=== PATIENT | male | born 1990 | race Caucasian/White ===

== ENCOUNTER 2021-11-26 17:46 | Emergency (ER) | payer OTHER, SELFPAY ==
--- NOTE | 2021-11-26 17:50 | ED.SKABFB ---
HPI - Skin/Abscess/Foreign Bdy General Chief complaint: Skin/Abscess/Foreign Body Stated complaint: possible spider bite Time Seen by Provider: 11/26/21 17:50 Source: patient and RN notes reviewed Mode of arrival: ambulatory Limitations: no limitations History of Present Illness HPI narrative: 31-year-old male presents to the [facility] with an insect bite to the left inner upper thigh that he noticed on Tuesday. Started becoming painful today. Came in for evaluation due to concern of a brown recluse bite. Onset (ago): day(s) (3) Related Data Home Medications Medication Instructions Recorded Confirmed gabapentin 300 mg capsule 300 mg PO DAILY 11/26/21 11/26/21 Allergies Allergy/AdvReac Type Severity Reaction Status Date / Time No Known Allergies Allergy Verified 11/26/21 17:59 Review of Systems Review of Systems: All systems reviewed & are unremarkable except as noted in HPI and below Constitutional: Constitutional: Reports no additional constitutional complaints, Denies chills and Denies fever(s) Eyes: Eyes: Reports no additional eye complaints ENT: Reports system reviewed and no additional complaints, except as documented Cardiovascular: Cardiovascular: Reports no additional cardiovascular complaints Respiratory: Respiratory: Reports no additional respiratory complaints Gastrointestinal: Gastrointestinal: Reports no additional gastrointestinal complaints Musculoskeletal: Musculoskeletal: Reports no additional musculoskeletal complaints Integumentary/Breasts: Skin/Breast: Reports as per HPI and Reports erythema (Right upper inner thigh) Neurologic: Reports system reviewed and no additional complaints, except as documented Psychiatric: Psychiatric: Reports no additional psychiatric complaints Allergic/Immunologic: Allergic/Immunologic: Reports no additional allergic/immunologic complaints PMFSH Past Medical History Medical History Patient denies medical problems Surgical History Surgical History (Updated 11/26/21 @ 19:15 by Cintia Deshpande APRN) No history of previous surgery Social History Social History (Updated 11/26/21 @ 19:16 by Cintia Deshpande APRN) Smoking status: Current every day smoker Tobacco type: cigarettes Gender identity (if verbalized by the patient): Male Comments At the time of my signature, I reviewed and agree with the nursing past medical, surgical, social, and family history. There is no relevant family history pertinent to the patient complaint. Exam Const: General: healthy appearing, no acute distress and alert Nutritional Appearance: well nourished Orientation/consciousness: patient oriented x3 Limitations: no limitations HENMT: Head: normal to inspection Ears: external ears normal General nose exam: Normal external nose present Eyes: General: appearance normal, both eyes and all related structures Pupils: Equal, round and reactive pupils present Neck: Neck: normal visual inspection, no lymphadenopathy and no meningeal signs Chest: Chest palpation & inspection: normal inspection of the chest Resp: Effort & Inspection: normal respiratory effort and no use of accessory muscles Auscultation: clear to auscultation bilaterally, no crackles, no rales, no rhonchi and no wheezes Cardio: Rate: regular rate Rhythm: regular rhythm Back/Spine/Pelvis: Cervical Spine: normal cervical lordosis Thoracic/Lumbar Spine: thoracic and lumbar spine normal to inspection Skin: General skin exam: normal color, turgor normal, skin not dry, erythema (7x5.5 cm with 1cm raised center), excoriation, no fluctuance and induration Rashes: no rashes Wounds: no wounds Full body images: 1. 7 x 5-1/2 cm erythema increased warmth with a raised 1 cm indurated area without fluctuance or drainage. Neuro: General: patient oriented x3, moves all extremities, no meningeal signs and no focal motor deficits Cranial nerves: Yes
[2021-11-26 17:58] VITALS: BP 135/78; PULSE 66; RESP 12; TEMP 36.7; O2SAT 100
== END 2021-11-26 18:30 | disposition home or self-care (01) ==
PROVIDERS: Emergency Provider Nurse Practitioner; PCP Nurse Practitioner Family
DX: S70.362A Insect bite (nonvenomous), left thigh, initial encounter (principal); L03.116 Cellulitis of left lower limb; W57.XXXA Bitten or stung by nonvenomous insect and other nonvenomous arthropods, initial encounter
CPT/HCPCS: 99203; G0463

== ENCOUNTER 2023-08-13 15:30 | Emergency (ER) | payer OTHER, SELFPAY ==
[2023-08-13 15:47] VITALS: BP 124/85; PULSE 69; RESP 16; TEMP 37.2; O2SAT 98
--- NOTE | 2023-08-13 15:50 | ED.GENADULT ---
HPI - General Adult General Chief complaint: Eye Problems Stated complaint: SORE THROAT/EYE REDNESS Source: patient, RN notes reviewed and old records reviewed Mode of arrival: ambulatory Limitations: no limitations History of Present Illness HPI narrative: 32-year-old male patient presents to [facility] with complaints of cough, congestion, sore throat, myalgia, bilateral eye redness /irritation / drainage that started 2-3 days ago. Patient taking [id number] medications with no relief. Patient denies chest pain, shortness of breath, dizziness, weakness Related Data Allergies Allergy/AdvReac Type Severity Reaction Status Date / Time No Known Allergies Allergy Verified 08/13/23 15:40 Review of Systems Constitutional: Constitutional: Reports no additional constitutional complaints, Reports body ache(s), Denies chills, Denies fatigue, Denies fever(s) and Denies headache(s) Eyes: Eyes: Reports no additional eye complaints, Denies blurry vision, Denies exophthalmos, Denies change in vision, Denies decreased night vision, Denies diplopia, Reports eye discharge, Reports irritation, Reports itchy eyes and Denies eye pain ENT: Reports system reviewed and no additional complaints, except as documented, Denies vertigo, Denies dizziness, Denies ear discharge, Denies otalgia, Denies facial pain, Denies headache(s), Reports nasal congestion, Denies nasal discharge, Denies sinus pain, Reports sinus pressure and Reports sore throat Cardiovascular: Cardiovascular: Reports no additional cardiovascular complaints, Denies chest pain, Denies chest pain at rest, Denies rapid heart rate and Denies dyspnea Respiratory: Respiratory: Reports no additional respiratory complaints, Denies chest congestion, Reports cough, Denies pain on inspiration, Denies pain with cough and Denies dyspnea Gastrointestinal: Gastrointestinal: Denies abdominal pain, Denies diarrhea, Denies nausea and Denies vomiting Integumentary/Breasts: Skin/Breast: Denies rash Neurologic: Reports system reviewed and no additional complaints, except as documented, Denies vertigo, Denies dizziness and Denies headache(s) Endocrine: Endocrine: Denies fatigue PMFSH Past Medical History Medical History Patient denies medical problems Surgical History Surgical History (Updated 11/26/21 @ 19:15 by Cintia Deshpande APRN) No history of previous surgery Social History Social History (Updated 11/26/21 @ 19:16 by Cintia Deshpande APRN) Smoking status: Current every day smoker Tobacco type: cigarettes Gender identity (if verbalized by the patient): Male Comments At the time of my signature, I reviewed and agree with the nursing past medical, surgical, social, and family history. There is no relevant family history pertinent to the patient complaint. Exam Const: General: cooperative, healthy appearing, no acute distress and well nourished Nutritional Appearance: well nourished Orientation/consciousness: patient oriented x3 Limitations: no limitations HENMT: Head: normal to inspection and normocephalic Ears: external ears normal, TM's normal bilaterally, EAC's normal and mastoids normal Face/Nose/Sinus: Normal nasal mucous membranes and turbinates present and normal facial exam Face and sinus: normal facial exam and sinuses nontender Mouth: Yes Normal oral and palatal mucosa present, Yes oropharynx normal and Yes moist mucous membranes Throat: tonsils normal, uvula midline, normal tonsils, no peritonsillar masses, posterior oropharynx abnormal erythema, postnasal drainage and no uvular edema Eyes: Alignment and Position: alignment normal Periorbital: periorbital findings normal Eyelids: eyelids normal Conjunctivae: conjunctival abnormality ( erythematous) bilateral discharge Sclera: sclerae normal Pupils: Equal, round and reactive pupils present Resp: Effort & Inspection: normal respiratory effort, able to speak in
== END 2023-08-13 16:08 | disposition home or self-care (01) ==
PROVIDERS: Emergency Provider Registered Nurse; PCP Nurse Practitioner Family
DX: H10.9 Unspecified conjunctivitis (principal); B34.9 Viral infection, unspecified; Z20.822 Contact with and (suspected) exposure to COVID-19; F17.210 Nicotine dependence, cigarettes, uncomplicated
CPT/HCPCS: 87081; 87426; 87804; 87880; 99213; G0463

== ENCOUNTER 2024-04-30 16:36 | Emergency (ER) | payer OTHER, SELFPAY ==
[2024-04-30] VITALS (7 sets, daily range): BP systolic 126–148; BP diastolic 82–93; PULSE 70–96; RESP 14–18; TEMP 36.6; O2SAT 96–99
--- NOTE | ~2024-04-30 | XR_ITS ---
EXAMINATION: XR chest 2V Exam Date/Time: 04/30/2024 18:22 PUBLIC INFORMATION OFFICER HISTORY: dyspnea and chest tightness Comparison: None. RESULT: Lines, tubes, and devices: None. Lungs and pleura: Clear. Cardiomediastinal silhouette: Normal. Other: No acute osseous or upper abdominal finding. IMPRESSION: No acute cardiopulmonary process. Reviewed, dictated and finalized at location K. IC INFORMATION OFFICER
--- NOTE | 2024-04-30 18:08 | ED_ITS ---
HPI - SOB/Dyspnea General Chief Complaint: Shortness of Breath/Dyspnea <Ryan Mora PA-C - Last Filed: 04/30/24 18:14> Stated Complaint: chest tightness, sob <SUSAN Dumont Last Filed: 04/30/24 18:14> Time Seen by Provider: 04/30/24 18:08 <Ryan Mora PA-C - Last Filed: 04/30/24 18:14> Focused HPI: This is a 33-year-old male who presents to the ED for chief complaint of chest tightness and shortness of breath beginning yesterday morning. Reports tightness to the central chest but denies pain. States that it comes and goes in severity and is associated with dyspnea. Reports that he has had panic attacks in the past but they have not quite felt like this. endorses dizziness, nausea, lack of appetite. Denies exertional component to pain, syncope or back pain. GENERAL: Well-appearing, well-nourished, and in no acute distress. HEAD: Normocephalic, atraumatic. CHEST: Clear to auscultation. No respiratory distress. HEART: Regular rate and rhythm. NEURO: Alert and oriented x3. Patient screened in triage and initial orders placed. Additional care and disposition to be based upon diagnostic testing and treatment. <Ryan Mora PA-C - Last Filed: 04/30/24 18:14> Source: patient <SUSAN Dumont Last Filed: 04/30/24 18:14> Mode of arrival: ambulatory <Ryan Mora PA-C - Last Filed: 04/30/24 18:14> Limitations: no limitations <SUSAN Dumont Last Filed: 04/30/24 18:14> History of Present Illness HPI Narrative: Agree with above HPI. States sxs may have began actually 2 nights ago. Sxs have subsided currently. <SUSAN Torre Last Filed: 05/01/24 01:58> Related Data Allergies/Adverse Reactions: Allergies Allergy/AdvReac Type Severity Reaction Status Date / Time No Known Allergies Allergy Verified 04/30/24 18:22 <SUSAN Dumont Last Filed: 04/30/24 18:14> Review of Systems 2 Review of Systems: All systems reviewed & are unremarkable except as noted in HPI. <Kellen Grimm PA-C - Last Filed: 05/01/24 01:58> All systems reviewed & are unremarkable except as noted in HPI and below < Kellen Grimm PA-C - Last Filed: 05/01/24 01:58> PMFSH Past Medical History Medical History: Medical History Patient denies medical problems <Ryan Mora PA-C - Last Filed: 04/30/24 18:14> Surgical History Surgical History: Surgical History No history of previous surgery <Ryan Mora PA-C - Last Filed: 04/30/24 18:14> Social History Social History: Social History Smoking status: Current every day smoker Tobacco type: cigarettes Gender identity (if verbalized by the patient): Male <Ryan Mora PA-C - Last Filed: 04/30/24 18:14> Exam 2 Narrative: GENERAL: Well appearing, well-nourished, non-toxic, in no acute distress. HEAD: Normocephalic, atraumatic. RESPIRATORY: Airway patent, respirations nonlabored. Clear to auscultation bilaterally, no rales, rhonchi, wheezing. No focal lung sounds. CARDIOVASCULAR: Regular rate and rhythm without murmurs, rubs, or gallops. ABDOMINAL: Soft, minimal tenderness in epigastric region, nondistended. Normoactive BS. MUSCULOSKELETAL: Moves all extremities. No gross deformities. SKIN: Warm, dry, normal color. NEURO: A&O X3. Speech clear. Cranial nerves II-XII grossly intact. Steady gait. No ataxic movements. PSYCHIATRIC: Mildly anxious appearing. Normal interaction. <Kellen Grimm PA-C - Last Filed: 05/01/24 01:58> Course Vital Signs Vital signs: Vital Signs Temperature 97.9 F 04/30/24 16:38 Pulse Rate 91 04/30/24 16:38 Respiratory Rate 18 04/30/24 16:38 Blood Pressure 148/85 H 04/30/24 16:38 Pulse Oximetry 99 04/30/24 16:38 Oxygen Delivery Room Air 04/30/24 16:38 Temperature 97.9 F 04/30/24 16:38 Pulse Rate 70 04/30/24 23:46 Respiratory Rate 15 04/30/24 23:46 Blood Pressure 130/82 04/30/24 23:46 Pulse Oximetry 99 04/30/24 23:46 Oxygen Delivery Room Air 04/30/24 22:05 <Ryan Mora PA-C - Last Filed: 04/30/24 18:14> Vital Signs Temperature 97.9 F 04/30/24 16:38 Pulse Rate 91 04/30/24 16:38 Respiratory Rate 18 04/30/24 16:38 Blood Pressure 148/85 H 04/30/24 16:38 Pulse Oximetry 99 04/30/24 16:38 Oxygen Delivery Room Air 04/30/24 16:38 Temperature 97.9 F 04/30/24 16:38 Pulse Rate 70 04/30/24 23:46 Respiratory Rate 15 04/30/24 23:46 Blood Pressure 130/82 04/30/24 23:46 Pulse Oximetry 99 04/30/24 23:46 Oxygen Delivery Room Air 04/30/24 22:05 <Kellen Grimm PA-C - Last Filed: 05/01/24 01:58> MDM - SOB/Dyspnea MDM Narrative Medical decision making narrative: Patient presented to ED with 2 day hx of chest tightness, mild shortness of breath, nausea, decreased appetite, anxiety. Vital signs are stable upon arrival. Patient was seen in triage and given dose of hydroxyzine. Upon my evaluation, he is feeling improved. States symptoms have subsided significantly. Workup is reassuring. EKG is nonischemic. Troponin is undetectable. Chest tightness has been ongoing for the past 2 days. Low suspicion for ACS at this time. No indication for 3 hour troponin. D-dimer was within normal range. Viral swabs were negative. No leukocytosis or anemia. There was a slight anion gap of 14 on CMP. Patient does admit to decreased intake over the last few days. He was given fluids in the ED. Blood sugar is normal. Electrolytes are otherwise within normal range. Chest x-ray is clear. Patient additionally given fluids and Zofran in the ED. He is feeling better upon re-evaluation. Feel he is safe for discharge home at this time with close outpatient follow-up. Recommended follow-up with PCP for further evaluation. Discussed strict return precautions and patient voiced understanding. Discharged in stable condition. <Kellen Grimm PA-C - Last Filed: 05/01/24 01:58> Medical Records Attestation: I reviewed the patient's medical records. <SUSAN Torre Last Filed: 05/01/24 01:58> Lab Data Attestation: I reviewed the patient's lab results. <Kellen Grimm PA-C - Last Filed: 05/01/24 01:58> Result diagrams: 04/30/24 18:17 04/30/24 18:17 <SUSAN Dumont Last Filed: 04/30/24 18:14> Labs: Lab Results 04/30/24 04/30/24 Range/Units 18:17 21:58 WBC 6.5 (4.5-10.0) K/mm3 RBC 5.06 (4.6-6.20) M/mm3 Hgb 15.7 (14.0-18.0) g/dL Hct 45.2 (42.0-52.0) % MCV 89.3 (80-100) fl MCH 31.0 (26-34) pg MCHC 34.7 (32-36) g/dl RDW 12.3 (11.5-14.5) % Plt Count 344 (150-375) k/mm3 MPV 9.8 (7.4-10.4) fl Immature Gran % (Auto) 0.3 (0-0.5) % Neut % (Auto) 67.9 (45.5-73.1) % Lymph % (Auto) 19.5 (18.3-44.2) % Harvey % (Auto) 11.2 H (2.6-8.5) % Eos % (Auto) 0.6 (0-4.4) % Baso % (Auto) 0.5 (0.2-1.2) % Lymph # (Auto) 1.27 (0.9-3.2) K/mm3 Harvey # (Auto) 0.7 H (0.1-0.6) K/mm3 Eos # (Auto) 0.0 (0-0.3) K/mm3 Baso # (Auto) 0.0 (0.0-0.1) K/mm3 Abs Immat Gran (auto) 0.02 (0.00-0.031) K/mm3 Absolute Neuts (auto) 4.4 (1.3-6.7) K/mm3 Absolute Nucleated RBC 0.000 (0.0-0.012) K/mm3 Nucleated RBC % 0.0 (0.0-0.2) % PT 13.1 (11.1-14.7) Seconds INR 1.0 APTT 24.5 (22.3-36.8) Seconds D-Dimer < 0.27 (<0.48) ug/mL Sodium 133 L (137-145) mmol/L Potassium 4.3 (3.4-5.0) mmol/L Chloride 100 (98-107) mmol/L Carbon Dioxide 19 L (22-30) mmol/L Anion Gap 14 H (4-12) mmol/L BUN 15 (9-20) mg/dL Creatinine 0.90 (0.7-1.3) mg/dL Estim Creat Clear Calc 91 ml/min Estimated GFR > 60 (59 - ) Glucose 85 (65-110) mg/dL Calcium 9.7 (8.4-10.2) mg/dL Magnesium 2.1 (1.6-2.3) mg/dL Total Bilirubin 0.8 (0.2-1.3) mg/dL AST 71 H (17-59) U/L ALT 49 (6-50) U/L Alkaline Phosphatase 133 H (38-126) U/L Total Creatine Kinase 56 (55-170) U/L Troponin I < 0.012 (0.000-0.034) ng/mL Total Protein 9.0 H (6.3-8.2) g/dL Albumin 5.0 (3.5-5.1) g/dL Influenza A (RT-PCR) Negative (Negative) Influenza B (RT-PCR) Negative (Negative) RSV (RT-PCR) Negative (Negative) SARS-CoV-2 RNA (RT-PCR) Negative (Negative) <Ryan Mora PA-C - Last Filed: 04/30/24 18:14> Lab Results 04/30/24 04/30/24 Range/Units 18:17 21:58 WBC 6.5 (4.5-10.0) K/mm3 RBC 5.06 (4.6-6.20) M/mm3 Hgb 15.7 (14.0-18.0) g/dL Hct 45.2 (42.0-52.0) % MCV 89.3 (80-100) fl MCH 31.0 (26-34) pg MCHC 34.7 (32-36) g/dl RDW 12.3 (11.5-14.5) % Plt Count 344 (150-375) k/mm3 MPV 9.8 (7.4-10.4) fl Immature Gran % (Auto) 0.3 (0-0.5) % Neut % (Auto) 67.9 (45.5-73.1) % Lymph % (Auto) 19.5 (18.3-44.2) % Harvey % (Auto) 11.2 H (2.6-8.5) % Eos % (Auto) 0.6 (0-4.4) % Baso % (Auto) 0.5 (0.2-1.2) % Lymph # (Auto) 1.27 (0.9-3.2) K/mm3 Harvey # (Auto) 0.7 H (0.1-0.6) K/mm3 Eos # (Auto) 0.0 (0-0.3) K/mm3 Baso # (Auto) 0.0 (0.0-0.1) K/mm3 Abs Immat Gran (auto) 0.02 (0.00-0.031) K/mm3 Absolute Neuts (auto) 4.4 (1.3-6.7) K/mm3 Absolute Nucleated RBC 0.000 (0.0-0.012) K/mm3 Nucleated RBC % 0.0 (0.0-0.2) % PT 13.1 (11.1-14.7) Seconds INR 1.0 APTT 24.5 (22.3-36.8) Seconds D-Dimer < 0.27 (<0.48) ug/mL Sodium 133 L (137-145) mmol/L Potassium 4.3 (3.4-5.0) mmol/L Chloride 100 (98-107) mmol/L Carbon Dioxide 19 L (22-30) mmol/L Anion Gap 14 H (4-12) mmol/L BUN 15 (9-20) mg/dL Creatinine 0.90 (0.7-1.3) mg/dL Estim Creat Clear Calc 91 ml/min Estimated GFR > 60 (59 - ) Glucose 85 (65-110) mg/dL Calcium 9.7 (8.4-10.2) mg/dL Magnesium 2.1 (1.6-2.3) mg/dL Total Bilirubin 0.8 (0.2-1.3) mg/dL AST 71 H (17-59) U/L ALT 49 (6-50) U/L Alkaline Phosphatase 133 H (38-126) U/L Total Creatine Kinase 56 (55-170) U/L Troponin I < 0.012 (0.000-0.034) ng/mL Total Protein 9.0 H (6.3-8.2) g/dL Albumin 5.0 (3.5-5.1) g/dL Influenza A (RT-PCR) Negative (Negative) Influenza B (RT-PCR) Negative (Negative) RSV (RT-PCR) Negative (Negative) SARS-CoV-2 RNA (RT-PCR) Negative (Negative) <Kellen Grimm PA-C - Last Filed: 05/01/24 01:58> Imaging Data Attestation: I personally reviewed and interpreted this imaging study as follows: < SUSAN Torre Last Filed: 05/01/24 01:58> Radiologist's impression: ITS Impressions Chest X-Ray 04/30/24 18:29 IMPRESSION: No acute cardiopulmonary process. <SUSAN Torre Last Filed: 05/01/24 01:58> ECG Data EKG #1: Attestation: I personally reviewed and interpreted this ECG as follows: <SUSAN Torre Last Filed: 05/01/24 01:58> ECG completion date: 04/30/24 <SUSAN Torre Last Filed: 05/01/24 01:58> ECG completion time: 18:15 <SUSAN Torre Last Filed: 05/01/24 01:58> EKG Interpretation: normal rate (74), sinus rhythm, no ST changes and other (artifact and wander in V2) <SUSAN Torre Last Filed: 05/01/24 01:58> Discharge Plan Discharge Clinical Impression: Chest tightness, Nausea, Difficulty breathing, Dehydration <SUSAN Dumont Last Filed: 04/30/24 18:14> Patient Disposition: Home, Self-Care <SUSAN Dumont Last Filed: 04/30/24 18:14> Condition: Stable <SUSAN Dumont Last Filed: 04/30/24 18:14> Instructions: Antibiotic Form, Chest Pain (ED), Dyspnea (ED), Anxiety (ED) <SUSAN Dumont Last Filed: 04/30/24 18:14> Additional Instructions: Your workup here was reassuring. Stay well hydrated at home. Continue home nausea medicine as needed. Recommend close follow-up with your primary care doctor for further evaluation. Return to the ED if you experience worsening or severe chest pain or difficulty breathing, unable to keep down food or drink, severe pain, pain or swelling in legs, persistent fevers, or any other symptoms of concern. <SUSAN Dumont Last Filed: 04/30/24 18:14> Prescriptions: No Action ofloxacin 0.3 % drops 2 drp EACH EYE QID 7 Days Qty: 10 0RF <SUSAN Dumont Last Filed: 04/30/24 18:14> Follow-up/Referrals: Jarrett,Riya Devine NP [Primary Care Provider] - <SUSAN Dumont Last Filed: 04/30/24 18:14> Time of Disposition: 23:25 <Ryan Mora PA-C - Last Filed: 04/30/24 18:14> 23:25 <Kellen Grimm PA-C - Last Filed: 05/01/24 01:58>
--- NOTE | 2024-04-30 18:09 | ECG_ITS ---
Test Date: 2024-04-30 18:15:21 Measurements Intervals [place] Rate: 74 P: 53 IN: 138 QRS: 15 QRSD: 97 T: 33 QT: 381 QTc: 425 Interpretive Statements SINUS RHYTHM VOLTAGE CRITERIA FOR LVH [MEETS CRITERIA IN ONE OF: R(aVL), S(V1), R(V5), R(V5/V6)+S(V1)] BASELINE ARTIFACT PRESENT No previous ECG available for comparison Electronically Signed On 05-01-2024 14:50:35 MAP COMPILER by Sarah Rocha M.D.
[2024-04-30] MEDS: hydrOXYzine HCL 25 MG TABLET PO (18:21)
[2024-04-30 18:32] LABS: Basophils Percent Auto 0.5 % (0.2-1.2); Eosinophils Percent Auto 0.6 % (0-4.4); Hematocrit 45.2 % (42.0-52.0); Hemoglobin 15.7 g/dL (14.0-18.0); Immature Granulocyte Absolute 0.02 K/mm3 (0.00-0.031); Immature Granulocyte Percent A 0.3 % (0-0.5); Lymphocytes Absolute Auto 1.27 K/mm3 (0.9-3.2); Lymphocytes Percent Auto 19.5 % (18.3-44.2); Mean Corpuscular HGB Conc 34.7 g/dl (32-36); Mean Corpuscular Volume 89.3 fl (80-100); Mean Platelet Volume 9.8 fl (7.4-10.4); Monocytes Absolute Auto 0.7 K/mm3 (0.1-0.6); Monocytes Percent Auto 11.2 % (2.6-8.5); Neutrophils Absolute Auto 4.4 K/mm3 (1.3-6.7); Neutrophils Percent Auto 67.9 % (45.5-73.1); Platelet Count Result 344 k/mm3 (150-375); Red Blood Count 5.06 M/mm3 (4.6-6.20); Red Cell Distribution Width 12.3 % (11.5-14.5); White Blood Count 6.5 K/mm3 (4.5-10.0)
[2024-04-30 18:39] LABS: Alanine Aminotransferase 49 U/L (6-50); Alkaline Phosphatase 133 U/L (38-126); Anion Gap 14 mmol/L (4-12); Aspartate Amino Transferase 71 U/L (17-59); Bilirubin,Total 0.8 mg/dL (0.2-1.3); Blood Urea Nitrogen 15 mg/dL (9-20); Calcium 9.7 mg/dL (8.4-10.2); Carbon Dioxide 19 mmol/L (22-30); Chloride 100 mmol/L (98-107); Estimated CRCL calculation 91 ml/min; Estimated Glomerular Filt Rate > 60; Glucose 85 mg/dL (65-110); Potassium 4.3 mmol/L (3.4-5.0); Sodium 133 mmol/L (137-145)
[2024-04-30 18:41] LABS: Partial Thromboplastin Time 24.5 Seconds (22.3-36.8); Prothrombin Time 13.1 Seconds (11.1-14.7)
[2024-04-30 18:51] LABS: Troponin I < 0.012 ng/mL (0.000-0.034)
[2024-04-30] MEDS: SODIUM CHLORIDE 0.9% IV 1,000 ML 999 ML IV CONT (21:15)
[2024-04-30 21:27] LABS: Creatine Kinase 56 U/L (55-170); Magnesium 2.1 mg/dL (1.6-2.3)
[2024-04-30] MEDS: ONDANSETRON INJ 4 MG/2 ML VIAL IV PUSH (21:53)
[2024-04-30 22:09] LABS: D Dimer < 0.27 ug/mL (<0.48)
[2024-04-30 22:42] LABS: Influenza A QL RT-PCR Negative (Negative); Influenza B QL RT-PCR Negative (Negative); RSV RNA, RT-PCR Negative (Negative); SARS-CoV-2 RNA PCR Negative (Negative)
== END 2024-04-30 23:47 | disposition home or self-care (01) ==
PROVIDERS: Physician Assistant; Emergency Provider Physician Assistant; PCP Nurse Practitioner Family
DX: R07.89 Other chest pain (principal); E86.0 Dehydration; R11.0 Nausea; R06.02 Shortness of breath; Z20.822 Contact with and (suspected) exposure to COVID-19; F17.210 Nicotine dependence, cigarettes, uncomplicated
CPT/HCPCS: 36415; 71046; 80053; 82550; 83735; 84484; 85025; 85380; 85610; 85730; 87637; 93005; 96361; 96374; 96375; 99284; A9270; J2405; J7030